=== PATIENT | male | born 1955 | race Caucasian/White ===

== ENCOUNTER 2018-08-17 13:34 | Emergency (ER) | payer BC ==
[~2018-08-17] VITALS: Ht 180.3 cm; Wt 73.9 kg
[2018-08-17 13:34] VITALS: BP 140/92
--- NOTE | 2018-08-17 14:43 | RAD ---
Right hand 3 views. HISTORY: Right hand pain, twisted hand 3 views were taken of the right hand. There is not evidence of a fracture. There is evidence of arthritis in the hand and wrist with mild spurring. Spurring is evident at the distal interphalangeal joints and at the first carpal metacarpal joint as well as to a lesser degree at the metacarpal phalangeal joints. There is no acute osseous abnormality. There are small cysts in the head of the third and fourth metacarpals. There is mild soft tissue swelling. IMPRESSION: 1. 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 2. No fracture or acute osseous abnormality. Electronically signed by: Gregg Marx MD (08/17/2018 2:40 PM) [facility]
--- NOTE | 2018-08-17 15:09 | ED.ADGEN ---
Adult General Chief Complaint Chief Complaint Right hand pain HPI HPI Patient is a 62-year-old right-handed male presents with right hand pain/ swelling over second MCP joint. Symptoms began after firing his shotgun while duck hunting earlier this morning on cutting earlier today. No obvious deformity on ED arrival. Swelling improved.[] Review of Systems Review of Systems Review symptoms as per history of present illness. All other review symptoms are negative. All other systems were reviewed and found to be within normal limits, except as documented in this note. Allergies Allergies Allergies Coded Allergies Type Severity Reaction Last Updated Verified Penicillins Allergy Unknown 08/17/18 Yes Sulfa (Sulfonamide Antibiotics) Allergy Unknown 08/17/18 Yes Tetanus Vaccines and Toxoid Allergy Unknown 08/17/18 Yes Physical Exam Physical Exam Constitutional: Well developed, well nourished, no acute distress, non-toxic appearance. [] HENT: Normocephalic, atraumatic, bilateral external ears normal, oropharynx moist, no oral exudates, nose normal. [] Extremities: Swelling, contusion to dorsum of right hand over second and third MCP joint, no deformity, normal alignment. [] Neurologic: Alert and oriented X 3, normal motor function, normal sensory function, no focal deficits noted. [] Psychologic: Affect normal, judgement normal, mood normal. [] EKG EKG [] Radiology/Procedures Radiology/Procedures [X-ray right hand: No obvious displaced fracture per radiology report] Course & Med Decision Making Course & Med Decision Making Pertinent Labs and Imaging studies reviewed. (See chart for details) [Patient placed in compression wrap and instructed to avoid right hand use.] Final Impression Final Impression [1. right hand contusion] Dragon Disclaimer Dragon Disclaimer This electronic medical record was generated, in whole or in part, using a voice recognition dictation system. QUIN VALDERRAMA DO Aug 17, 2018 15:09
== END 2018-08-17 14:27 | disposition home or self-care (01) ==
LOC: ER 13:34
DX: S60.221A Contusion of right hand, initial encounter (principal); M19.041 Primary osteoarthritis, right hand; Z88.0 Allergy status to penicillin; Z88.7 Allergy status to serum and vaccine; Z88.2 Allergy status to sulfonamides; X50.1XXA Overexertion from prolonged static or awkward postures, initial encounter; Y93.89 Activity, other specified; Y92.89 Other specified places as the place of occurrence of the external cause; Y99.8 Other external cause status
CPT/HCPCS: 73130; 99284